=== PATIENT | female | born 1985 | race Caucasian/White ===

== ENCOUNTER 2017-12-02 20:12 | Emergency (ER) | payer OTHER ==
--- NOTE | 2017-12-02 20:40 | ED ---
Bite Injury/Animal - HPI Summary HPI Summary: 32-year-old female presents with tick bite in the left flank for the past 4 days. She states she is unsure how long it was there but she stated it was not engorged. She states she removed but could not head. She denies any history of Lyme disease. She is allergic to doxycycline. She denies any chills. She denies any fevers. She denies any joint aches. She denies any rash. She denies any spreading redness. No medical conditions. - History of Current Complaint Chief Complaint: EDAnimalBite Stated Complaint: TICK BITE Time Seen by Provider: 12/02/17 20:25 Hx Last Menstrual Period: mar 26 Pain Intensity: 0 - Allergies/Home Medications Allergies/Adverse Reactions: Allergies Allergy/AdvReac Type Severity Reaction Status Date / Time Penicillins Allergy Hives Verified 12/02/17 20:21 Home Medications: Home Medications NK [No Home Medications Reported] 12/02/17 [History Confirmed 12/02/17] PMH/Surg Hx/FS Hx/Imm Hx Endocrine/Hematology History: Denies: Hx Diabetes, Hx Thyroid Disease Cardiovascular History: Denies: Hx Hypertension Respiratory History: Denies: Hx Asthma, Hx Chronic Obstructive Pulmonary Disease (COPD) GI History: Denies: Hx Ulcer - Surgical History Surgery Procedure, Year, and Place: rt knee [id number] Infectious Disease History: No Infectious Disease History: Denies: Hx Clostridium Difficile, Hx Hepatitis, Hx Human Immunodeficiency Virus (HIV), Hx of Known/Suspected MRSA, Hx Shingles, Hx Tuberculosis, Hx Known/ Suspected VRE, Hx Known/Suspected VRSA, History Other Infectious Disease, Traveled Outside the [place] in Last 30 Days - Family History Known Family History: Positive: Hypertension - Social History Alcohol Use: None Substance Use Type: Reports: None Smoking Status (MU): Light Every Day Tobacco Smoker Review of Systems Negative: Fever Negative: Chest Pain Positive: Other - tick bite left flank All Other Systems Reviewed And Are Negative: Yes Physical Exam Triage Information Reviewed: Yes Vital Signs On Initial Exam: Initial Vitals Temp Pulse Resp BP Pulse Ox 98.5 F 77 16 138/84 99 12/02/17 20:20 12/02/17 20:20 12/02/17 20:20 12/02/17 20:20 12/02/17 20:20 Vital Signs Reviewed: Yes Appearance: Positive: Well-Appearing Skin: Positive: Warm, Dry, Other - tick head present in left flank pain Head/Face: Positive: Normal Head/Face Inspection Eyes: Positive: Normal, Conjunctiva Clear Respiratory/Lung Sounds: Positive: Clear to Auscultation, Breath Sounds Present Cardiovascular: Positive: Normal, RRR Musculoskeletal: Positive: Normal Neurological: Positive: Normal Psychiatric: Positive: Normal Diagnostics - Vital Signs Vital Signs Temp Pulse Resp BP Pulse Ox 12/02/17 20:20 98.5 F 77 16 138/84 99 - Laboratory Lab Statement: Any lab studies that have been ordered have been reviewed, and results considered in the medical decision making process. Bite Injury Course/Dx - Course Course Of Treatment: 32-year-old female presents with tick bite in the left flank for the past 4 days. She states she is unsure how long it was there but she stated it was not engorged. She states she removed but could not head. She denies any history of Lyme disease. She is allergic to doxycycline. She denies any chills. She denies any fevers. She denies any joint aches. She denies any rash. She denies any spreading redness. No medical conditions. on left flank tick head present that removed with needle. She is out of the range to treat doxycycline. Told to return if develop bull eye rash. Patient understands agrees with plan. - Diagnoses Differential Diagnosis/HQI/PQRI: Positive: Puncture, Other - tick, lyme Provider Diagnosis: Tick bite Discharge - Sign-Out/Discharge Documenting (check all that apply): Discharge/Admit/Transfer - Discharge Plan Condition: Good Disposition: HOME Patient Education Materials: Tick Bite (ED) Referrals: Sheila Puga MD [Primary Care Provider] - Additional Instructions: Return to ED if develop bull eye rash, fever, or any new or worsening symptoms - Billing Disposition and Condition Condition: GOOD Disposition: HOME
[2017-12-02 20:56] VITALS: BP 118/76
== END 2017-12-02 20:56 | disposition home or self-care (01) ==
LOC: ED 20:12
DX: S30.861A Insect bite (nonvenomous) of abdominal wall, initial encounter (principal); W57.XXXA Bitten or stung by nonvenomous insect and other nonvenomous arthropods, initial encounter; Y92.9 Unspecified place or not applicable; F17.200 Nicotine dependence, unspecified, uncomplicated; Z88.0 Allergy status to penicillin
CPT/HCPCS: 99282

== ENCOUNTER 2018-08-17 22:36 | Emergency (ER) | payer OTHER ==
--- NOTE | 2018-08-18 00:20 | ED ---
Throat Pain/Nasal Congestion - HPI Summary HPI Summary: Patient complains of right upper dental pain 2 weeks. History of chronic dental pain, but states it has been worse in the past couple days. Admits she needs to follow-up with dentist. Denies fever, cough, sore throat, purulent discharge from mouth, N/V/D, CP, SOB, abdominal pain, change in urine, change in BM. Medical history is none. - History of Current Complaint Chief Complaint: EDDentalPain Time Seen by Provider: 08/17/18 23:19 Hx Obtained From: Patient Onset/Duration: Gradual Onset, Lasting Weeks Severity: Moderate Associated Signs And Symptoms: Positive: Negative Cough: None - Allergies/Home Medications Allergies/Adverse Reactions: Allergies Allergy/AdvReac Type Severity Reaction Status Date / Time Penicillins Allergy Hives Verified 12/02/17 20:21 PMH/Surg Hx/FS Hx/Imm Hx Endocrine/Hematology History: Denies: Hx Diabetes, Hx Thyroid Disease Cardiovascular History: Denies: Hx Hypertension Respiratory History: Denies: Hx Asthma, Hx Chronic Obstructive Pulmonary Disease (COPD) GI History: Denies: Hx Ulcer History: Denies: Hx Dialysis Sensory History: Denies: Hx Eye Prosthesis Opthamlomology History: Denies: Hx Legally Blind EENT History: Denies: Hx Deafness Neurological History: Denies: Hx Dementia - Surgical History Surgery Procedure, Year, and Place: rt knee [id number] Infectious Disease History: No Infectious Disease History: Denies: Hx Clostridium Difficile, Hx Hepatitis, Hx Human Immunodeficiency Virus (HIV), Hx of Known/Suspected MRSA, Hx Shingles, Hx Tuberculosis, Hx Known/ Suspected VRE, Hx Known/Suspected VRSA, History Other Infectious Disease, Traveled Outside the [place] in Last 30 Days - Family History Known Family History: Positive: Hypertension - Social History Alcohol Use: None Substance Use Type: Reports: None Smoking Status (MU): Current Every Day Smoker Review of Systems Constitutional: Negative Eyes: Negative Positive: Dental Pain Cardiovascular: Negative Respiratory: Negative Gastrointestinal: Negative Genitourinary: Negative Musculoskeletal: Negative Skin: Negative Neurological: Negative Psychological: Normal All Other Systems Reviewed And Are Negative: Yes Physical Exam - Summary Physical Exam Summary: No evidence of apical abscess, purulent discharge or trauma. Tenderness with palpation of rear upper molar. Triage Information Reviewed: Yes Vital Signs On Initial Exam: Initial Vitals Temp Pulse Resp BP Pulse Ox 98.1 F 87 16 148/87 98 08/17/18 22:38 08/17/18 22:38 08/17/18 22:38 08/17/18 22:38 08/17/18 22:38 Vital Signs Reviewed: Yes Appearance: Positive: Well-Appearing Skin: Positive: Warm Head/Face: Positive: Normal Head/Face Inspection Eyes: Positive: Normal ENT: Positive: Normal ENT inspection Dental: Negative: Dental Fracture @, Abscess @, Bleeding Neck: Positive: Supple Respiratory/Lung Sounds: Positive: Clear to Auscultation Cardiovascular: Positive: Normal Abdomen Description: Positive: Nontender Musculoskeletal: Positive: Normal Neurological: Positive: Normal Psychiatric: Positive: Normal AVPU Assessment: Alert - Guillermo Coma Scale Best Eye Response: 4 - Spontaneous Best Motor Response: 6 - Obeys Commands Best Verbal Response: 5 - Oriented Coma Scale Total: 15 Diagnostics - Vital Signs Vital Signs Temp Pulse Resp BP Pulse Ox 08/17/18 22:38 98.1 F 87 16 148/87 98 - Laboratory Lab Statement: Any lab studies that have been ordered have been reviewed, and results considered in the medical decision making process. EENT Course/Dx - Course Course Of Treatment: Patient complains of right upper dental pain 2 weeks. History of chronic dental pain, but states it has been worse in the past couple days. Admits she needs to follow-up with dentist. Denies fever, cough, sore throat, purulent discharge from mouth, N/V/D, CP, SOB, abdominal pain, change in urine, change in BM. Medical history is none. Physical exam:No evidence of apical abscess, purulent discharge or trauma. Tenderness with palpation of rear upper molar. Rx for clindamycin. Follow-up with dentist. - Diagnoses Provider Diagnoses: Jaw pain Discharge - Sign-Out/Discharge Documenting (check all that apply): Patient Departure - Discharge Plan Condition: Stable Disposition: HOME Prescriptions: Clindamycin HCl 300 mg PO TID 7 Days #21 capsule Patient Education Materials: Toothache (ED) Referrals: Sheila Puga MD [Primary Care Provider] - Additional Instructions: Follow-up with your dentist as soon as possible. Alternate ibuprofen 600 mg with Tylenol 650 mg every 3 hours. Return to the ED for any new or worsening symptoms. - Billing Disposition and Condition Condition: STABLE Disposition: Home
[2018-08-18 00:41] VITALS: BP 122/78
== END 2018-08-18 00:53 | disposition home or self-care (01) ==
LOC: ED 22:36
DX: R68.84 Jaw pain (principal); K08.89 Other specified disorders of teeth and supporting structures; Z88.0 Allergy status to penicillin; F17.210 Nicotine dependence, cigarettes, uncomplicated
CPT/HCPCS: 99282

== ENCOUNTER 2019-03-06 07:39 | Emergency (ER) | payer OTHER ==
--- NOTE | 2019-03-06 08:08 | ED ---
Throat Pain/Nasal Congestion - HPI Summary HPI Summary: Patient is a 33-year-old female who presents emergency department with 3 day history of sinus congestion/pressure, sore throat and cough. Patient notes numerous family members sick at home with similar symptoms. Patient also notes she's been having irritation to a temporary last molar for several months. Patient denies fever, abdominal pain, vomiting, diarrhea, urinary symptoms. She does not a mild nonproductive cough. Is a daily smoker. Symptoms are mild in severity. No current modifying factors. - History of Current Complaint Chief Complaint: EDUpperRespComplaint Time Seen by Provider: 03/06/19 08:06 Hx Obtained From: Patient - Allergies/Home Medications Allergies/Adverse Reactions: Allergies Allergy/AdvReac Type Severity Reaction Status Date / Time Penicillins Allergy Hives Verified 03/06/19 07:44 Home Medications: Home Medications Dextromethorphan Polistirex [Robitussin ER] 1 dose PO Q12H PRN 03/06/19 [ History Confirmed 03/06/19] Ibuprofen 400 mg PO Q6H PRN 03/06/19 [History Confirmed 03/06/19] PMH/Surg Hx/FS Hx/Imm Hx Previously Healthy: Yes Endocrine/Hematology History: Denies: Hx Diabetes, Hx Thyroid Disease Cardiovascular History: Denies: Hx Hypertension Respiratory History: Denies: Hx Asthma, Hx Chronic Obstructive Pulmonary Disease (COPD) GI History: Denies: Hx Ulcer History: Denies: Hx Dialysis Sensory History: Denies: Hx Eye Prosthesis, Hx Legally Blind, Hx Deafness Opthamlomology History: Denies: Hx Eye Prosthesis, Hx Legally Blind Neurological History: Denies: Hx Dementia - Surgical History Surgery Procedure, Year, and Place: rt knee [id number] Infectious Disease History: No Infectious Disease History: Denies: Hx Clostridium Difficile, Hx Hepatitis, Hx Human Immunodeficiency Virus (HIV), Hx of Known/Suspected MRSA, Hx Shingles, Hx Tuberculosis, Hx Known/ Suspected VRE, Hx Known/Suspected VRSA, History Other Infectious Disease, Traveled Outside the [place] in Last 30 Days - Family History Known Family History: Positive: Hypertension, Non-Contributory - Social History Occupation: Employed Full-time Lives: With Family Alcohol Use: None Substance Use Type: Reports: None Smoking Status (MU): Current Every Day Smoker Review of Systems Constitutional: Negative Negative: Fever, Chills Eyes: Negative Positive: Dental Pain, Sore Throat, Other - sinus congestion Cardiovascular: Negative Positive: Cough. Negative: Shortness Of Breath Gastrointestinal: Negative Negative: Abdominal Pain, Vomiting, Diarrhea Skin: Negative Neurological: Negative All Other Systems Reviewed And Are Negative: Yes Physical Exam Triage Information Reviewed: Yes Vital Signs On Initial Exam: Initial Vitals Temp Pulse Resp BP Pulse Ox 98.6 F 92 16 138/86 99 03/06/19 07:41 03/06/19 07:41 03/06/19 07:41 03/06/19 07:41 03/06/19 07:41 Vital Signs Reviewed: Yes Appearance: Positive: Well-Appearing - Pt. sitting up in bed in NAD. Skin: Positive: Warm, Dry Head/Face: Positive: Normal Head/Face Inspection Eyes: Positive: Normal, EOMI, SKY, Conjunctiva Clear ENT: Positive: TMs normal, Other - Tonsils mildly edematous without excudate. Uvula midline. NO trismus or muffled voice. Mild tenderness to right top last molar. No surroudning erythema or edema. No abscess. Mild tenderness to right maxillary sinus. Neck: Positive: Supple, Enlarged Nodes @ - small bilateral anterior Respiratory/Lung Sounds: Positive: Clear to Auscultation, Breath Sounds Present. Negative: Rales, Rhonchi, Wheezes Cardiovascular: Positive: Normal, RRR Musculoskeletal: Positive: Normal, Strength/ROM Intact Neurological: Positive: Normal, CN Intact II-III Psychiatric: Positive: Affect/Mood Appropriate Diagnostics - Vital Signs Vital Signs Temp Pulse Resp BP Pulse Ox 03/06/19 07:41 98.6 F 92 16 138/86 99 - Laboratory Lab Statement: Any lab studies that have been ordered have been reviewed, and results considered in the medical decision making process. EENT Course/Dx - Course Course Of Treatment: Pt. with 3 days a sinus congestion. Has mild dental pain without signs of infection. Suspect viral etiology. Will rx flonase. Advised to continue NSAIDS. Close f.u with a dentist. To see pcp in one week if sxs persist. Pt. understands and agrees with plan. - Differential Diagnoses Differential Diagnoses: Allergic Rhinitis, Dental Abscess, Fractured Tooth, Gingivitis, Laryngitis, Periodontic Abscess, Sinusitis, Tonsilitis, URI/ Bronchitis - Diagnoses Provider Diagnoses: Dentalgia, Upper respiratory infection Discharge - Sign-Out/Discharge Documenting (check all that apply): Patient Departure Patient Received Moderate/Deep Sedation with Procedure: No - Discharge Plan Condition: Good Disposition: HOME Prescriptions: Fluticasone NASAL SPRAY 50MCG* [Flonase NASAL SPRAY 50MCG*] 2 spray BOTH NARES DAILY #1 btl Patient Education Materials: Sinusitis (ED), Toothache (ED) Referrals: Sheila Puga MD [Primary Care Provider] - Additional Instructions: Follow up with PCP in 1 week if symptoms persist Please see a dentist as soon as possible Nose spray as directed Ibuprofen for pain as directed Increase fluids and rest Return to ER if symptoms change or worsen - Billing Disposition and Condition Condition: GOOD Disposition: Home
[2019-03-06 08:26] VITALS: BP 128/87
== END 2019-03-06 08:24 | disposition home or self-care (01) ==
LOC: ED 07:39
DX: K08.89 Other specified disorders of teeth and supporting structures (principal); J06.9 Acute upper respiratory infection, unspecified; F17.210 Nicotine dependence, cigarettes, uncomplicated; Z88.0 Allergy status to penicillin
CPT/HCPCS: 99282